=== PATIENT | female | born 1990 | race Caucasian/White ===

== ENCOUNTER 2021-12-18 18:30 | Emergency (ER) | payer OTHER, SELFPAY ==
[2021-12-18 18:36] VITALS: BP 164/92; PULSE 86; RESP 18; TEMP 36.6; O2SAT 100
--- NOTE | 2021-12-18 18:41 | ED.SKABFB ---
HPI - Skin/Abscess/Foreign Bdy General Chief complaint: Skin/Abscess/Foreign Body Stated complaint: Insect Bite Time Seen by Provider: 12/18/21 18:42 Source: patient Mode of arrival: ambulatory Limitations: no limitations History of Present Illness HPI narrative: Ms. Mchugh is a 31-year-old female patient presenting to the clinic today with complaints of possible insect bite to her lower abdominal fold. She reports she first noticed these 3 to 4 days ago. She has been trying to pop them. She has 2 areas of induration and redness with mild drainage to the right lower abdomen. She denies any fever or chills Related Data Allergies Allergy/AdvReac Type Severity Reaction Status Date / Time No Known Allergies Allergy Verified 12/18/21 18:51 Review of Systems Review of Systems: Pertinent positives per HPI. Patient denies any fever, chills, rash, headache, visual changes, dizziness, cough, runny nose, sore throat, shortness of breath, chest pain, palpitations, nausea, vomiting, diarrhea, constipation, abdominal pain, or any urinary issues. PMFSH Comments At the time of my signature, I reviewed and agree with the nursing past medical, surgical, social, and family history. There is no relevant family history pertinent to the patient complaint. Exam Narrative: General: Well-developed, obese in no apparent distress Head: Normocephalic, atraumatic. Cardio: Regular rate and rhythm, s1 and s2 normal, no murmur appreciated. Resp: Clear to auscultation bilaterally, no rhonchi, rales, wheezing or rubs. Integumentary: [place], warm, and dry, intact without lesion, area of redness measuring 7 x 6 cm with middle lesion with whitish appearance and mild yellow drainage. Mild tenderness to touch and erythremia Course Course Emergency Course: Portions of this record may have been created with voice recognition software. Level of Care: Express Care Visit Vital Signs Vital signs: Vital signs reviewed MDM - Skin/Abscess/Foreign Bdy MDM Narrative Medical decision making narrative: At the time of visit patient is resting comfortably on exam table. She has 1 sore to the right lower abdominal fold with some induration. I suspect that this is skin infection. I will give her a prescription for some doxycycline, Diflucan for possible yeast infection after taking antibiotic and some mupirocin cream. Supportive measures were discussed with the patient she voiced understanding of discharge instructions and agrees to treatment plan. Differential Diagnosis Differential diagnosis: Likely abscess of skin or subcutaneous tissue, cellulitis and insect bites Discharge Plan Discharge Clinical Impression: Bacterial skin infection Patient Disposition: Home, Self-Care Condition: Stable Instructions: Antibiotic Form, Wound Infection (ED) Additional Instructions: Keep wounds clean and dry Take doxycycline as prescribed May apply mupirocin cream as directed May take Tylenol/Motrin as needed for pain or fever Keep wounds covered if they are draining Follow-up with your PCP in 3 to 5 days if symptoms persist or sooner if they worsen Prescriptions: New doxycycline monohydrate 100 mg capsule 100 mg PO BID 7 Days Qty: 14 0RF mupirocin 2 % ointment 1 applic topical BID 7 Days Qty: 22 0RF fluconazole [Diflucan] 150 mg tablet 150 mg PO DAILY 6 Days Qty: 2 0RF Rx Instructions: every 72 hours as needed for vaginal yeast infection. Follow-up/Referrals: Az,Jose Eduardo Mascorro MD [Primary Care Provider] - Time of Disposition: 19:02 Quality NIHSS Nursing Documentation ED NIHSS nursing documentation: reviewed/agree
== END 2021-12-18 19:03 | disposition home or self-care (01) ==
PROVIDERS: Emergency Provider Nurse Practitioner Family; PCP Family Medicine
DX: L08.9 Local infection of the skin and subcutaneous tissue, unspecified (principal); B96.89 Other specified bacterial agents as the cause of diseases classified elsewhere; I10 Essential (primary) hypertension
CPT/HCPCS: 99203; G0463

== ENCOUNTER 2023-01-30 13:25 | Emergency (ER) | payer OTHER, SELFPAY ==
[2023-01-30 13:31] VITALS: BP 160/105; PULSE 87; RESP 16; TEMP 36.4; O2SAT 97
--- NOTE | 2023-01-30 13:47 | ED.EYEPROB ---
HPI - Eye Problem General Chief complaint: Eye Problems Stated complaint: Right Eye Problem Time Seen by Provider: 01/30/23 13:40 Source: patient Mode of arrival: ambulatory Limitations: no limitations History of Present Illness HPI Narrative: Sydni is a 32-year-old female patient presenting to the clinic today with complaints of pain around the right eye. Reports that these symptoms started early December and have gradually gotten worse. Has a lot of tenderness and swelling and redness around her right eye. She denies any known fever or chills. She denies any drainage coming from the eye. She denies any URI symptoms. History of a septal cyst Related Data Allergies Allergy/AdvReac Type Severity Reaction Status Date / Time No Known Allergies Allergy Verified 01/30/23 13:32 Review of Systems Review of Systems: Pertinent positives per HPI. Patient denies any fever, chills, rash, headache, visual changes, dizziness, cough, runny nose, sore throat, shortness of breath, chest pain, palpitations, nausea, vomiting, diarrhea, constipation, abdominal pain, or any urinary issues. PMFSH Comments At the time of my signature, I reviewed and agree with the nursing past medical, surgical, social, and family history. There is no relevant family history pertinent to the patient complaint. Exam Narrative: General: Well-developed, morbidly obese, in no apparent distress Head: Normocephalic, atraumatic Eyes: Pupils equally round and reactive to light bilaterally, EOM intact, sclera and conjunctive clear, no discharge, lids normal, tenderness, redness, and swelling noted around the lower portion of the right eye Ears: TMs intact and clear, ear canals clear, no drainage, grossly hearing normal. Nose: Nares patent, clear discharge, mild inflammation, no sinus tenderness. Mouth: Oropharynx without lesions or masses, good dentition, MMM. Neck: Supple, trachea midline, no enlargement of anterior or posterior cervical nodes, no thyroid masses or goiter palpable. Cardio: Regular rate and rhythm, s1 and s2 normal, no murmur appreciated. Resp: Clear to auscultation bilaterally anteriorly and posteriorly, no rhonchi, rales, wheezing or rubs Course Course Emergency Course: Portions of this record may have been created with voice recognition software. Level of Care: Express Care Visit Vital Signs Vital signs: Vital Signs Temperature 36.4 C 01/30/23 13:31 Pulse Rate 87 01/30/23 13:31 Respiratory Rate 16 01/30/23 13:31 Blood Pressure 160/105 H 01/30/23 13:31 Pulse Oximetry 97 01/30/23 13:31 Oxygen Delivery Room Air 01/30/23 13:31 Temperature 36.4 C 01/30/23 13:31 Pulse Rate 87 01/30/23 13:31 Respiratory Rate 16 01/30/23 13:31 Blood Pressure 160/105 H 01/30/23 13:31 Pulse Oximetry 97 01/30/23 13:31 Oxygen Delivery Room Air 01/30/23 13:31 Vital signs reviewed MDM - Eye Problem MDM Narrative Medical decision making narrative: At the time of visit patient is resting comfortably on exam table. I suspect patient may have early jenn orbital cellulitis versus preseptal cellulitis. Will send in prescription for Augmentin and have the patient follow-up with her PCP/ENT. Supportive measures were discussed with the patient return precautions were reviewed. Patient voiced understanding of the discharge instructions and agrees to treatment plan. Prescription for Diflucan was also sent to the pharmacy is patient gets yeast infections with antibiotics. Differential Diagnosis Differential diagnosis: Likely periorbital cellulitis and other (Pre septal cellulitis, sinus infection, insect bite, stye) Discharge Plan Discharge Clinical Impression: Periorbital cellulitis Qualifiers: Laterality: right Qualified Code(s): L03.213 - Periorbital cellulitis Patient Disposition: Home, Self-Care Condition: Stable Instructions: Antibiotic Form, Periorbital Cellulitis (ED) Additional Instructio
== END 2023-01-30 13:55 | disposition home or self-care (01) ==
PROVIDERS: Emergency Provider Nurse Practitioner Family; PCP Family Medicine
DX: L03.213 Periorbital cellulitis (principal)
CPT/HCPCS: 99213; G0463

== ENCOUNTER 2023-06-24 13:33 | Emergency (ER) | payer OTHER, SELFPAY ==
--- NOTE | ~2023-06-24 | XR_ITS ---
EXAMINATION: XR chest 2V DATE: 06/24/2023 14:14 INDICATION: Cough. Back pain. TECHNIQUE: Frontal and lateral views of the chest were obtained on 3 radiographs. COMPARISON: None. FINDINGS: There is no pneumonia, pleural effusion, or pneumothorax. The heart size is normal. IMPRESSION: 1. No acute cardiopulmonary disease. Reviewed, dictated and finalized at location A. S[facility] ADMIN
[2023-06-24 13:49] VITALS: PULSE 87; RESP 20; TEMP 36.4; O2SAT 100
[2023-06-24 14:26] VITALS: BP 160/100
--- NOTE | 2023-06-24 14:57 | ED.GENADULT ---
HPI - General Adult General Chief complaint: Upper Respiratory Infection Stated complaint: chest congestion/pain in back Source: patient Mode of arrival: ambulatory Limitations: no limitations History of Present Illness HPI narrative: Pt presents for evaluation of sick symptoms for the past six days. Symptoms include cough, sore throat, sensation that her ears need to pop, bilateral ear pain, wheezing, mild SOB, and pleuritic back pain. She denies any fever, chills, nausea, vomiting, diarrhea. Her friend son recently had influenza and strep. She has been taking OTC cough and cold medication without considerable improvement in her symptoms thereafter. She smokes 1/2 ppd. She has a history of hypertension but has not been taking her medication. Related Data Allergies Allergy/AdvReac Type Severity Reaction Status Date / Time acetaminophen [From Vicodin] Allergy unknown Verified 06/24/23 14:52 hydrocodone [From Vicodin] Allergy unknown Verified 06/24/23 14:52 Review of Systems Review of Systems: CONSTITUTIONAL: Denies fever, chills, or sweats. EYES: Denies visual changes, redness, or discharge. ENT: Reports sore throat, sinus congestion and a sensation that her ears need to pop. CARDIOVASCULAR: Denies chest pain, palpitations, or edema. RESPIRATORY: Reports cough, wheezing, shortness of breath, pleuritic back pain GASTROINTESTINAL: Denies abdominal pain, nausea, vomiting, or diarrhea. GENITOURINARY: Denies dysuria or hematuria. SKIN: Denies rash or itching. MUSCULOSKELETAL: Denies back pain, joint pain, or myalgia. NEUROLOGIC: Denies headache, numbness, dizziness, or weakness. PSYCHIATRIC: Denies anxiety or depression. [facility] Past Medical History Medical History No pertinent past medical history Surgical History Surgical History No pertinent past surgical history Family History Family History (Updated 06/24/23 @ 15:03 by KANA Ritchie, MEENU) Mother Family history non-contributory Social History Social History Smoking packs per day: 0.5 Smoking cigarettes per day: 10.0 Smoking status: Current every day smoker Substance use: never Living arrangements: with family Gender identity (if verbalized by the patient): Female Sexual Orientation (if Verbalized by the Patient): Straight or Heterosexual Spiritual care concerns: No Exam Narrative: GENERAL: Well-appearing, well-nourished, and in no acute distress. HEAD: Normocephalic, atraumatic. EYES: PERRLA and EOMI. ENT: Nares clear, no rhinorrhea or epistaxis. Mucous membranes moist. Oropharynx without tonsillar hypertrophy exudate or other lesions. Bilateral tympanic membrane erythema with bulging of the right TM. NECK: Supple. No adenopathy or masses. No carotid bruits or JVD CHEST: Cough present on exam. Clear to auscultation. No respiratory distress. No wheezes rales or rhonchi HEART: Regular rate and rhythm. No murmur heard. Normal peripheral pulses. ABDOMEN: Soft, nontender, nondistended, normal active bowel sounds. EXTREMITIES: Normal range of motion. No edema. SKIN: Warm, dry, no rash. NEURO: No focal deficits. Alert and oriented x3. PSYCH: Normal mood and affect. Course Course Emergency Course: This is a 32-year-old female who presented for evaluation of sick symptoms. She has experience wheezing so give her a prescription for prednisone. There is no evidence of pneumonia on her chest x-ray. Her other testing here was all negative. She does have evidence of otitis media on the right so will treat with Augmentin. Advised smoking cessation. Will also provide her with a prescription for an inhaler she can take for shortness of breath. She should follow up with her primary provider regarding her current symptoms and her hypertension. She should
== END 2023-06-24 14:58 | disposition home or self-care (01) ==
PROVIDERS: Emergency Provider Nurse Practitioner; PCP Family Medicine
DX: H66.91 Otitis media, unspecified, right ear (principal); R06.2 Wheezing; Z20.822 Contact with and (suspected) exposure to COVID-19; F17.210 Nicotine dependence, cigarettes, uncomplicated
CPT/HCPCS: 71046; 87426; 87804; 99213; G0463

== ENCOUNTER 2024-03-30 19:15 | Emergency (ER) | payer OTHER, SELFPAY ==
[2024-03-30 19:19] VITALS: BP 140/60; PULSE 113; RESP 16; TEMP 36.6; O2SAT 98
--- NOTE | 2024-03-30 19:47 | ED.GENADULT ---
HPI - General Adult General Chief complaint: Nausea/Vomiting/Diarrhea Stated complaint: nausea/headache/sweats Source: patient Mode of arrival: ambulatory Limitations: no limitations History of Present Illness HPI narrative: Patient presents for evaluation of sick symptoms. She reports nausea, vomiting, diarrhea, and frontal headache. Symptom onset today. She had some recent and direct sick contacts to individuals with a viral illness. She has a chronic cough which she attributes to smoking. Cough is not worse than her baseline. Denies any shortness of breath. She is requesting prescriptions for ibuprofen and Zofran. She does not feel like any diagnostic testing is needed. She is also here for a work excuse. Related Data Home Medications Medication Instructions Recorded Confirmed amlodipine 5 mg tablet 5 mg PO 03/30/24 Allergies Allergy/AdvReac Type Severity Reaction Status Date / Time acetaminophen [From Vicodin] Allergy unknown Verified 06/24/23 14:52 hydrocodone [From Vicodin] Allergy unknown Verified 06/24/23 14:52 Review of Systems Review of Systems: CONSTITUTIONAL: Denies fever, chills, or sweats. EYES: Denies visual changes, redness, or discharge. ENT: Denies rhinorrhea, congestion, sore throat, or otalgia. CARDIOVASCULAR: Denies chest pain, palpitations, or edema. RESPIRATORY: Reports chronic cough, unchanged from baseline. Denies SOB GASTROINTESTINAL: Reports nausea, vomiting, diarrhea, and abdominal cramping. GENITOURINARY: Denies dysuria or hematuria. SKIN: Denies rash or itching. MUSCULOSKELETAL: Denies back pain, joint pain, or myalgia. NEUROLOGIC: Reports headache. Denies numbness, dizziness, or weakness. PSYCHIATRIC: Denies anxiety or depression. [facility] Past Medical History Medical History No pertinent past medical history Surgical History Surgical History No pertinent past surgical history Family History Family History Mother Family history non-contributory Social History Social History Smoking packs per day: 0.5 Smoking cigarettes per day: 10.0 Smoking status: Current every day smoker Substance use: never Living arrangements: with family Gender identity (if verbalized by the patient): Female Sexual Orientation (if Verbalized by the Patient): Straight or Heterosexual Spiritual care concerns: No Exam Narrative: GENERAL: Well-appearing, well-nourished, and in no acute distress. HEAD: Normocephalic, atraumatic. EYES: PERRLA and EOMI. ENT: Nares clear, no rhinorrhea or epistaxis. Mucous membranes moist. Oropharynx without tonsillar hypertrophy exudate or other lesions. Bilateral TMs pearly armstrong nonbulging NECK: Supple. No adenopathy or masses. No carotid bruits or JVD CHEST: Occasional cough present on exam. Clear to auscultation. No respiratory distress. No wheezes rales or rhonchi HEART: Regular rate and rhythm. No murmur heard. Normal peripheral pulses. ABDOMEN: Soft, nontender, nondistended, normal active bowel sounds. EXTREMITIES: Normal range of motion. No edema. SKIN: Warm, dry, no rash. NEURO: No focal deficits. Alert and oriented x3. PSYCH: Normal mood and affect. Course Course Emergency Course: This is a 33-year-old female who presented for evaluation of sick symptoms. She declined any diagnostic testing. She would only like prescriptions for Zofran and ibuprofen. She would like a note to excuse her from work. Increase hydration. Follow up with primary provider. Go to the ER for worsening symptoms. Patient in agreement plan of care. Level of Care: Express Care Visit Vital Signs Vital signs: Vital Signs Temperature 36.6 C 03/30/24 19:19 Pulse Rate 113 H 03/30/24 19:19 Respiratory Rate 16 03/30/24 19:19 Blood Pressure 140/60 03/30/24 19:19 Pulse Oximetry 98 03/30/24 19:19 Oxygen Delivery Room Air 03/30/24 19:19 Temperature 36.6 C 03/30/24 19:19 Pulse Rate 113 H 03/30/24 19:19 Respiratory Rate 16 03/30/24 19:19 Blood Pressure 140/60 03/30/24 19:19 Pulse Oximetry 98 03/30/24 19:19 Oxygen Delivery Room Air 03/30/24 19:19 Medical Decision Making Vital Signs Vital Signs: Vital Signs Temperature 36.6 C 03/30/24 19:19 Pulse Rate 113 H 03/30/24 19:19 Respiratory Rate 16 03/30/24 19:19 Blood Pressure 140/60 03/30/24 19:19 Pulse Oximetry 98 03/30/24 19:19 Oxygen Delivery Room Air 03/30/24 19:19 Temperature 36.6 C 03/30/24 19:19 Pulse Rate 113 H 03/30/24 19:19 Respiratory Rate 16 03/30/24 19:19 Blood Pressure 140/60 03/30/24 19:19 Pulse Oximetry 98 03/30/24 19:19 Oxygen Delivery Room Air 03/30/24 19:19 Discharge Plan Discharge Clinical Impression: Acute viral syndrome Patient Disposition: Home, Self-Care Condition: Stable Instructions: Antibiotic Form, Viral Syndrome (ED) Patient Language: Pashto Prescriptions: New ondansetron 4 mg tablet,disintegrating 4 mg PO Q6H PRN (Reason: nausea and vomiting) Qty: 20 0RF ibuprofen 800 mg tablet 800 mg PO TID PRN (Reason: pain) Qty: 30 0RF No Action amlodipine 5 mg tablet 5 mg PO Follow-up/Referrals: Az,Jose Eduardo Mascorro MD [Primary Care Provider] - Stand Alone Forms: Work/School Release IP Time of Disposition: 19:37
== END 2024-03-30 19:40 | disposition home or self-care (01) ==
PROVIDERS: Emergency Provider Nurse Practitioner; PCP Family Medicine
DX: B34.9 Viral infection, unspecified (principal); F17.210 Nicotine dependence, cigarettes, uncomplicated
CPT/HCPCS: 99213; G0463